=== PATIENT | male | born 1975 | race Caucasian/White ===

== ENCOUNTER 2018-02-06 10:10 | Day surgery (SDC) | payer OTHER ==
[~2018-02-06] VITALS: Ht 177.8 cm; Wt 146.5 kg
[~2018-02-06 10:10] MED LIST: CEFAZOLIN SOD 1 GM/ ISO 50 ML PREMIX IV ONE
[2018-02-06] MEDS ORDERED: BUPIVACAINE /PF 0.25% 30 ML VIAL INJ ONE (14:00)
[2018-02-06] MEDS ORDERED: fentaNYL CITRATE 250 MCG/5 ML AMP IV ONE (14:00)
[2018-02-06] MEDS ORDERED: PROPOFOL 200MG/ 20ML VIAL (DIPRIVAN) IV ONE (14:00)
[2018-02-06] MEDS ORDERED: EPINEPHrine 1 MG/ML AMP IV ONE (14:00)
[2018-02-06] MEDS ORDERED: KETOROLAC TROMETHAMINE 30 MG VIAL IVP ONE (14:00)
[2018-02-06] MEDS ORDERED: DEXAMETHASONE SOD PHOSPHATE 4 MG/ML VIAL IVP ONE (14:00)
[2018-02-06] MEDS ORDERED: MIDAZOLAM HCL 5 MG/5 ML VIAL IVP ONE (14:00)
[2018-02-06] MEDS ORDERED: NS 250 ML IV.SOLN IV ONE (14:00)
[2018-02-06] MEDS ORDERED: fentaNYL CITRATE/PF 100 MCG/2 ML AMP IVP ONE (14:00)
[2018-02-06] MEDS ORDERED: SEVOFLURANE 15 MIN GAS INH ONE (14:00)
[2018-02-06] MEDS ORDERED: ROCURONIUM BROMIDE 10 MG/ML (ZEMURON) IV ONE (14:00)
[2018-02-06] MEDS ORDERED: ONDANSETRON HCL 4 MG/2 ML VIAL IVP ONE (14:00)
[2018-02-06] MEDS ORDERED: LR 1,000 ML IV SCH (14:55)
[2018-02-06] MEDS ORDERED: HYDROmorphone 2 MG/ML VIAL IVP PRN ×2 (15:00)
[2018-02-06] MEDS ORDERED: MEPERIDINE HCL/PF 25 MG/ML DISP.SYRIN IVP PRN (15:00)
[2018-02-06] MEDS ORDERED: HYDROmorphone 1 MG INJ. 1 MG/ML AMPUL IVP PRN (15:00)
[2018-02-06 15:49] VITALS: BP_SYST 122
== END 2018-02-06 17:00 | disposition home or self-care (01) ==
LOC: SDS 10:10 → SMU 10:11 → SDS 17:00
PROVIDERS: ATTEND Colon & Rectal Surgery
DX: K60.1 Chronic anal fissure (principal); K60.3 Anal fistula; E66.01 Morbid (severe) obesity due to excess calories; Z68.41 Body mass index [BMI] 40.0-44.9, adult; Z79.899 Other long term (current) drug therapy; Z98.890 Other specified postprocedural states; Z90.49 Acquired absence of other specified parts of digestive tract; Z80.41 Family history of malignant neoplasm of ovary
CPT/HCPCS: 46200; 46270; 88304; J0171; J0690; J1100; J1885; J2250; J2405; J2704; J3010 ×2; J3490; J7050